=== PATIENT | female | born 1975 | race African-American/Black ===

== ENCOUNTER 2019-02-20 07:13 | Outpatient (CLI) | payer MEDICAID ==
--- NOTE | 2019-02-20 08:26 | ULT ---
PELVIC ULTRASOUND: 02/20/2019 COMPARISON: None. HISTORY: Uterine fibroid disease. TECHNIQUE: Multiplanar dooley-scale sonographic imaging of the pelvis is obtained with transabdominal and endovagi nal imaging. The ovaries are assessed with color-flow and spectral analysis. FINDINGS: The uterus is lobulated and enlarged, measuring at least 8.6 x 5.2 cm. There are multiple heterogeneo usly hypoechoic and isoechoic lesions within the uterus suggesting numerous uterine fibroids, measuring up to 4.3 x 3.2 x 2.8 cm in the fundus. The uterus is retroverted. The endometrial stripe i s upper limits of normal, measuring approximately 1.5 cm. There is a 3.2 cm cyst within the left ovary. Both ovaries demonstrate normal blood flow. No right-si ded ovarian/adnexal mass. The right ovary measures 2.7 x 1.1 x 1.8 cm and the left ovary measures 4.2 x 1.9 x 3.3 cm. IMPRESSION: 1. Findings suggesting an enlarged and lobulated fibroid uterus. Recommend correlation with MRI of th e pelvis for full assessment. 2. Left ovarian cyst measuring 3.1 cm. Transcribed Date/Time: 02/20/2019 9:50 AM
== END 2019-02-20 07:14 | disposition home or self-care (01) ==
LOC: BICULT 07:13
PROVIDERS: ATTEND Nurse Practitioner
DX: D25.9 Leiomyoma of uterus, unspecified (principal); N83.202 Unspecified ovarian cyst, left side
CPT/HCPCS: 76856

== ENCOUNTER 2023-03-09 11:46 | Emergency (ER) | payer MEDICAID, SELFPAY ==
[2023-03-09] MEDS ORDERED: Ketorolac Tromethamine 30 MG (1 mL) VIAL ONE (12:43)
== END 2023-03-09 13:16 | disposition home or self-care (01) ==
LOC: ERS 11:46
DX: J32.0 Chronic maxillary sinusitis (principal); F17.210 Nicotine dependence, cigarettes, uncomplicated
CPT/HCPCS: 96372; 99283; J1885